=== PATIENT | male | born 1995 | race African-American/Black ===

== ENCOUNTER 2022-06-19 12:24 | Emergency (ER) | payer MEDICAID, SELFPAY ==
[2022-06-19 12:34] VITALS: BP 168/72; PULSE 117; O2SAT 98
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
[2022-06-19 12:43] VITALS: BP 134/80; PULSE 99; RESP 14; TEMP 36.8; O2SAT 98; BMI 27.7
--- OUTSIDE RECORDS SUMMARY | 2022-06-19 13:30 | XMS_ITS | Continuity of Care Document ---
:1995 Author Organization [facility] Care Team Providers Name Role Phone DOD-VA Unavailable Unavailable Problems Combined list of problems from Department of Defense and Veterans Affairs facilities. It does not include entries that were removed or entered in error. Problem Status Onset Date Problem Type Date of Resolution Comment s Source Sickle-cell Active Condition DoD trait Allergies, Adverse Reactions, Alerts Combined list of allergies from Department of Defense and Veterans Affairs facilities. It does not include entries that were removed or entered in error. Substance Category Reaction Severity Reaction Status Date Comments S ource type Reported No Known Drug Drug active 02/14/2020 Bennie Martinez Allergies allergy allergy [facility] Immunizations Combined list of available immunizations from the Department of Defense and Veterans Affairs facilities. Immunization Series Date Administered Site Reaction Lot CVX Drug St atus Comments Source Given By Number Code [employer] Architect poliovirus 1 , [id number] Sanofi complet polioviru DoD vaccine, 2019 CIELO Martinez Pasteur (PMC) ed s inactivated vaccine, inactivat ed hepatitis A 2 , [id number] SmithKline compl et hepatitis DoD and hepatitis 2019 CIELO Martinez ([facility]) ed A an d B vaccine hepatitis B vaccine varicella 2 , [id number] Merck (MSD) comp let varicella DoD virus vaccine 2019 NYWHITNEY Martinez ed viru s vaccine measles and 0 () Not measles DoD rubella virus 2019 Given and vaccine rubella virus vaccine meningococcal 1 02/10/ TERE, [id number] 114 Sanofi c omplet meningoco DoD polysaccharid 2019 NANCY Maria ([facility]MC) ed ccal e (groups A, polysac ch C, Y and aride W-135) (groups diphtheria A, C, Y toxoid and conjugate W-135) vaccine diphtheri (MCV4P) a toxoid conjugate vaccine (MCV4P) tetanus 1 02/10/ TERE, [id number] 115 SmithKline compl et tetanus DoD toxoid, 2019 NANCY Remy ([facility]) ed toxoid, reduced reduced diphtheria diphtheri toxoid, and a toxoid , acellular and pertu is acellular vaccine, pertussis adsorbed vaccine, adsorbed hepatitis A 1 02/10/ TERE, [id number] 104 SmithKline c omplet hepatitis DoD and hepatitis 2019 NANCY Remy ([facility]) ed A and B vaccine hepatitis B vaccine varicella 1 02/10/ TERE, [id number] 21 Merck (MSD) complet varicella DoD virus vaccine 2019 NANCY Remy ed v irus vaccine Adenovirus, 1 [facility]/ [id number] 143 Other (OTH ) complet Adenoviru DoD type 4 and 2020 NANCY Remy 9 ed s, t ype 4 type 7, live, and ty pe oral 7, live, oral Encounters Combined list of: 1) Encounters from Department of Veterans Affairs facilities going back up to the last 18 months. 2) Encounters from the Department of Defense facilities going back up to 280 months. 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 Carly JETT [facility] YLVIA [facility] Jan [place]( 2019 Immuniz 0943 ation ------- 1523) ------- ------- ------- -- SICKLE CELL [employer] DIV 257 OUTPATIENT [id number] Notes SAMMY, 02/10 Relea sed w/o Dejan Martinez 9 Entered TIMA P Limitations Lovel l by: Fed [facility],TIMA Care P [place]( Jan [facility] 2019 s 0721 Clinic ------- Male) ------- ------- ------- -- P-4 Male [facility] OUTPATIENT [id number] Notes TANNER, 02/10 Releas ed w/o Dejan Martinez 7 Entered AGNES Limitations L ovell by: Catrachito [facility]( Jan Immuniz 2019 ation 0893 1523) ------- ------- ------- ------- -- P4 Immuniz ations OUTPATIENT [id number] Notes CANELA, 02/17 Sick at Dejan Martinez 9 Entered HOBSON Home/Quarter Lo esme by: s Catrachito [facility] [place] S 03 Center( Feb Mil 0758 Sick ------- Call ------- 1007) ------- ------- -- Leg px, Chest px, and Abdomin al px OUTPATIENT [id number] Notes NIKO, 02/21 Released w/o Dejan Martinez 4 Entered NEGRA Limitations L ovell by: Catrachito [facility] 07 Feb Center( 2019 [place] 1237 (White) ------- 1007) ------- ------- ------- -- F/U ZAPIEN PX OUTPATIENT [id number] SCT RADHA, 03/13 Release d w/o Dejan Martinez 8 SCREENI JUAN M P Limitations Leyda ell [facility]( Cour[place] (White) 1007) OUTPATIENT [id number] Notes TANNER, 03/17 Releas ed w/o Dejan Martinez 1 Entered AGENS Limitations L ovell by: Catrachito [facility] A 31 Center( Feb Immuniz 2019 ation 1332 1523) ------- ------- ------- ------- -- 5-2 Immuniz ations OUTPATIENT [id number] Notes PHILIP, 03/27 Released w/o Dejan Martinez 7 Entered ENID Limitations Leyda ell by: [facility]rachito [facility] R [facility] Center( Mar (White) [phone]) ------- ------- ------- ------- -- Lower Leg Pain OUTPATIENT [id number] Notes LAN, 03/28 Released w /o Dejan Martinez 4 Entered Limitations [place] by: CHINTAN [facility]( Mar (White) [phone]) ------- ------- ------- ------- -- shave chit OUTPATIENT [id number] Notes MEDARDO-DA 06/15 06/15 Relea sed [facility] 6 Entered VIS with [place] by: AGNES Remy Work/Duty [facility]([place] HUANG- Limitations -1 [facility] K [place]) May 2020 0743 ------- ------- ------- ------- -- chest discomf ort/leg pain TELE [id number] Notes SHAWN RODRÍGUEZ 06/21 [facility] CONSULT 4 Entered [place] by: [facility] ITZ RODRÍGUEZ Primary JAIME Care Jun) 2019 1447 ------- ------- ------- ------- -- Coordin ation of care TELE [id number] Notes OSMEL, 06/29 Other Not [facility] CONSULT 0 Entered Elsewhere [place] by: Classified [facility](Jonel Hernandez [facility]) ABDIAZIZ 29 Jun 2020 1452 ------- ------- ------- ------- -- AD TELE [id number] SHAWN Fletcher 07/03 [facility] CONSULT 8 Entered [place] by: [facility] ITZ RODRÍGUEZ Primary JAIME Care Jun) 2019 1300 ------- ------- ------- ------- -- Coordin ation of care TELE [id number] SHAWN Fletcher 09/05 [facility] CONSULT 0 Entered [place] by: [facility] ITZ RODRÍGUEZ Primary JAIME Care Aug) 2020 1309 ------- ------- ------- ------- -- Coordin ation of care Procedures Combined list of: 1) Procedures from Department of Veterans Affairs facilities going back up to the last 18 months, not all VA non-surgical procedures are included; 2) All procedures from the Department of Defense facilities. Procedure Procedure Type Code Date Perfomer Comments Sourc e IMMUNIZATION ADMINISTRATION 2019 (INCLUDES PERCUTANEOUS, INTRADERMAL, SUBCUTANEOUS, OR INTRAMUSCULAR INJECTIONS); EACH ADDITIONAL VACCINE (SINGLE OR COMBINATION VACCINE/TOXOID) INJECTION, PENICILLIN G 2020 BENZATHINE, 100,000 UNITS PATIENT EDUCATION, oD NOT OTHERWISE 2020 CLASSIFIED, NON-PHYSICIAN PROVIDER, GROUP, PER SESSION EDUCATION &TRAINING, PATIENT SELF-MGT 2019 QUALIFIED, NONPHYSICIAN HEALTH PIZZAMAKER USING STANDARDIZED CURRICULUM, PQHT-AA-IUDQ W THE PATIENT (COULD INCL CAREGIVER/FAMILY) EA 30 MIN; 5-8 PATIENTS VIS FUNCT SCREEN,AUTOMAT/SEMI- 2020 AUTOMAT BILAT QUANT DETERM VISUAL ACUITY,OCULAR ALIGN,COLOR VISION,PSEUDOISOCHRO MAT PLATES,& FIELD VIS (MAY INC ALL/SOME SCRN DETERM FOR CONTRAST SENSITIV,VIS UND GLARE) AUDIOMETRIC TESTING OF GROUPS 2019 ELECTROCARDIOGRAM, oD ROUTINE ECG WITH AT 2019 LEAST 12 LEADS; WITH INTERPRETATION AND REPORT Threshold Audiogram Threshold Audiogram 0208T AMAYAIke Duenas (Pure Tone) (Pure Tone) LENNY Parker Automated [employer] [facility] [address] [address] [facility] Testing Testing LENNY Parker Patient Counseling Patient Counseling [address] [facility] Medical Management FRANCISCO Five To Eight Five To Eight Patients Patients Visual Function Visual Function 91282 [facility] Screening Screening ANY A Patient education, [facility] not otherwise cla TIMA P ified, non-physician provider, group, per se ion Vaccines Viral Vaccines Viral 52958 [facility] Varicella ; DoD Varicella (Active) Varicella (Active) Se sallie Remy #: 1; NANCY 0.5 mL; SC; Left Arm; Mfg: Merck; Lot: [id number]; VIS given (Ho: 04/01/2019). Hepatitis A And Hepatitis A And 95495 [facility] Hep A-H ep B DoD Hepatitis B Hepatitis B M, (Twinrix); (Intramuscular Use) (Intramuscular Use) NANYC Series #: 1; 1 Adult Dosage Adult Dosage mL; IM; Left Arm; Mfg: Music Kickup; Lot: [id number]; VIS given (Ho: 03/06/16 (hep A); 04/01/2019). Meningococcal Meningococcal 54893 [facility] Meningococc al DoD Polysaccharide Polysaccharide M, MCV4P Diphtheria Toxoid Diphtheria Toxoid NANCY (Men actra); Conjugate Vaccine Conjugate Vaccine Seri es #: 1; 0.5 mL; IM; Left Arm; Mfg: Live On The Goofi Pasteur; Lot: [id number]; VIS given (Ho: 04/01/2019). Tdap Vaccine Tdap Vaccine 15022 [facility] Tdap; Series #: [facility] M, 1; .5 mL; IM; NANCY Right Arm; Mfg: Music Kickup; Lot: [id number]; VIS given (Ho: 10/11/14). Immunization Immunization 34597 [facility] Administration By Administration By M, Injection, One Injection, One NANCY Vaccine Vaccine Immunization Immunization 22997 [facility] Administration By Administration By M, Injection, Each Injection, Each NANCY Additional Vaccine Additional Vaccine Vaccines Adenovirus Vaccines Adenovirus 21113 [facility] Type 4 Live, For Type 4 Live, For M, Oral Use Oral Use NANCY Vaccines Adenovirus Vaccines Adenovirus 92910 [facility] Type 7 Live, For Type 7 Live, For M, Oral Use Oral Use [facility] Physician Supervised Physician 28019 [facility] Injection Supervised M, Intramuscular Injection NANCY Antibiotic Intramuscular Antibiotic Injection, [facility] penicillin g M, benzathine, 100,000 ANNCY units Vaccines Vaccines 62557 [facility] Adenovirus Type DoD M, 4 and 7; Series NANCY #: 1; 2 tablets; PO; Oral; Mfg: Other; Lot: [id number]; VIS given (Ho: 08/25/2019). Immunization Admin Immunization Admin 14955 [facility] By Intranasal / Oral By Intranasal / M, Route One Vaccine Oral Route One NANCY Vaccine Vaccines Viral Vaccines Viral 74216 WARD, IPV; Serie s #: DoD Polio, Inactivated Polio, Inactivated NYLES 1; 0.5 mL; SC; RONALD Right Arm; Mfg: Live On The Goofi Pasteur; Lot: [id number]; VIS given (Ho: 06/16/19; 11/17/19 - Multiple). Vaccines Viral Vaccines Viral 73184 SYLVIA Varicella; Ike Varicella (Active) Varicella (Active) CIELO rizo #: 2; RONALD 0.5 mL; SC; Left Arm; Mfg: Duvas Technologies; Lot: [id number]; VIS given (Ho: 04/01/2019). Hepatitis A And Hepatitis A And 61756 SYLVIA Hep A-He p B [facility] Hepatitis B Hepatitis B CIELO (Twinrix); (Intramuscular Use) (Intramuscular Use) RONALD Series #: 2; 1 Adult Dosage Adult Dosage mL; IM; Left Arm; Mfg: Music Kickup; Lot: [id number]; VIS given (Ho: 03/06/16 (hep A); 04/01/2019). Electrocardiogram Electrocardiogram 30572 BATRES-DA AGNES Gibson Social History Combined list of available smoking, tobacco, and other social history from Department of Defense andVeterans Affairs facilities. Social History Type Response Date Comment Source This section is an empty social history section. DoD
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
== END 2022-06-19 14:04 | disposition home or self-care (01) ==
PROVIDERS: Emergency Provider Emergency Medicine
DX: F11.19 Opioid abuse with unspecified opioid-induced disorder (principal); Z79.899 Other long term (current) drug therapy
CPT/HCPCS: 99282; 99283